=== PATIENT | male | born 1980 | race Caucasian/White ===

== ENCOUNTER 2021-04-12 00:23 | Emergency (ER) | payer SELFPAY ==
[2021-04-12] MEDS ORDERED: Dexamethasone 10 MG/ML VIAL ONE (01:08)
[2021-04-12] MEDS ORDERED: Piperacillin/Tazobactam 3.375 GM VIAL ONE (01:09)
[2021-04-12 02:11] LABS: Band 10 % (5-11); Eosinophils 3 % (0-10); Hemoglobin 14.9 g/dL (14.0-18.0); Lymphocytes 10 % (21-51); MDiff Complete? YES; Mean Corpuscular HGB CONC 31.7 g/dL (32.0-36.0); Mean Corpuscular Hemoglobin 29.3 pg (27.0-31.0); Mean Corpuscular Volume 92.6 fL (78.0-98.0); Mean Platelet Volume 5.6 fL (7.4-10.4); Monocytes 10 % (0-10); Neutrophil 63 % (42-75); Platelet Count 363 thou/uL (130-400); RBC Distribution Width 12.9 % (11.5-14.5); RBC Morphology Normal; Reactive Lymphocytes 2 % (0-10); Red Blood Cell (RBC) Count 5.09 mill/uL (4.70-6.10); Toxic Granulation SLIGHT; White Blood Cell (WBC) Count 14.8 thou/uL (4.8-10.8)
[2021-04-12 02:24] LABS: ALT (SGPT) 41 U/L (8-55); AST (SGOT) 31 U/L (5-34); Albumin 4.1 g/dL (3.5-5.0); Alkaline Phosphatase 71 U/L (40-110); Anion Gap 12 mmol/L (10-20); BUN (Urea Nitrogen) 12 mg/dL (8.9-20.6); Bilirubin, Total 0.7 mg/dL (0.2-1.2); Calc. Creatinine Clearance 0 mL/min (70-130); Calcium 9.8 mg/dL (7.8-10.44); Carbon Dioxide 26 mmol/L (22-29); Chloride 103 mmol/L (98-107); Globulin 3.6 g/dL (2.4-3.5); Glucose 94 mg/dL (70-105); Potassium 3.5 mmol/L (3.5-5.1); Protein, Total 7.7 g/dL (6.0-8.3); Sodium 137 mmol/L (136-145)
[2021-04-12] MEDS ORDERED: Sodium Chloride 0.9% 100 ML BAG ONE (07:16)
[2021-04-12] MEDS ORDERED: Sodium Chloride 0.9% 1,000 ML BAG ONE (07:16)
== END 2021-04-12 02:01 | disposition short-term general hospital (02) ==
LOC: MADERS 00:23
DX: J36 Peritonsillar abscess (principal)
CPT/HCPCS: 80053; 83605; 85025; 87040; 87430; 96365; 96375; J1100; J2543; J3490; J7050